=== PATIENT | female | born 1930 | race Caucasian/White ===

== ENCOUNTER 2018-01-05 22:35 | Inpatient (IN) ==
[2018-01-06] MEDS ORDERED: Naloxone 0.4 MG/ML INJ IVP PRN (01:33)
[2018-01-06] MEDS ORDERED: Furosemide 40 MG/4 ML VIAL IVP ONE (01:36)
[2018-01-06] MEDS ORDERED: Ringers Solution, Lactated 1,000 ML IVC SCH (01:45)
--- NOTE | 2018-01-06 01:45 | Internal Med History&Physical ---
Date of Encounter: 01/06/18 Time of Encounter: 01:37 Internal Medicine - H&P: HPI Chief complaint: Vomiting, dyspnea Admitted From: Emergency Dept Plans for Post Hospital Care: Home History of present illness: Ms. Bryan is a 87 year old female with h/o- atrial fibrillation and recent cardioversion, was transferred from [facility], due to LAURA. Patient is unable to provide any history due to dementia, which is obtained from review of previous records. Per family, patient has 2-week h/o- shortness of breath and exertional dyspnea, associated with leg swelling and cough. SHe underwent cardioversion for atrial fibrillation 4 days ago, and is noted to be on anticoagulation with Eliquis. She also had nausea and vomiting for the last 2 days, unable to keep any food or medications down. She currently denies all these symptoms. Past Med Surg Social Fam HX - Past Medical History Source: old records reviewed, obtained from family Medical history: atrial fibrillation, CHF, hypertension - Past Surgical History Surgical History: other (unable to be obtained due to patient's mental status) - Social History Smoking Status: Never smoker Smokeless Tobacco Status: No Alcohol use: none Drug use: none Occupational status: retired Current living situation: Home, With Family Activity Level: Uses cane/walker Recent Out of Country Travel Within the Last 8 Weeks: No Exposure or Possible Exposure to Illness During Travel: No - Family History Father Living Status: Cause of : [place] Hx Family Cardiac Disorders: ([place]) Internal Medicine - H&P: Meds 3 Allergy/AdvReac Type Severity Reaction Status Date / Time No Known Allergies Allergy Verified 01/06/18 02:14 All Systems PM: A 10-system review of systems was performed and is negative for pertinent findings except as documented above in the HPI. - Constitutional Constitutional: lethargy, weakness, no chills, no fever(s), no night sweats - EENT Eyes: no change in vision, no discharge, no pain, no photophobia Ears: no ear discharge, no ear pain, no tinnitus Nose, mouth and throat: no dysphagia, no nasal discharge, no neck pain, no sore throat - Cardiovascular Cardiovascular ROS IM: dyspnea, dyspnea on exertion, edema - Respiratory Respiratory: cough, dyspnea on exertion - Gastrointestinal Gastrointestinal: nausea, vomiting - Genitourinary Genitourinary: no change in urinary stream, no dysuria, no flank pain, no hematuria - Musculoskeletal Musculoskeletal ROS IM: muscle weakness, no numbness, no tingling - Integumentary Integumentary IM: no rash, no unusual bruising - Neurological Neurological ROS: no confusion, no convulsions, no focal weakness, no numbness, no tingling, no tremor(s) - Hematologic/Lymphatic Hematologic/Lymphatic: no easy bruising - Constitutional Vitals: Temp Pulse Resp BP Pulse Ox 98.1 F 54 18 143/94 99 01/06/18 00:38 01/06/18 00:38 01/06/18 00:38 01/06/18 00:38 01/06/18 00:38 General appearance: Present: A&O X 1. Absent: answers questions appropriately - Respiratory Respiratory exam: Present: CTAB (coarse breath sounds; upper airway wheezing). Absent: accessory muscle use, rales, rhonchi, wheezes - Cardiovascular Cardiovascular exam: Present: bradycardia, RRR, +S1, +S2. Absent: diastolic murmur, gallop, rubs, systolic murmur - GI/Abdominal GI/Abdominal exam: Present: normal bowel sounds, soft, no peritoneal signs. Absent: distended, tenderness - Extremities Exam Extremities exam: Present: full ROM, pedal edema (1+ pitting pedal edema), warm , radial pulses palpable and symmetrical. Absent: calf tenderness, cyanotic - Neurological Exam Neurological exam: Present: CN II-XII intact, no focal deficits. Absent: pronater drift, facial droop, speech deficit - Skin Skin exam: Present: dry, intact Internal Med - H&P Results - Labs CBC & Chem 7: 01/06/18 01:51 01/06/18 01:51 - EKG Data -: EKG Interpreted by Myself EKG shows normal: sinus rhythm Rate: bradycardia - Assessment and plan (1) Acute kidney injury Current Visit: Yes Status: Acute Assessment and plan: unclear baseline serum creatinine; serum creatinine and BUN in the ER- 4.16, 63. K- 5.1. Clinically volume overloaded, along with nausea/emesis. She is noted to be on Lasix and Spironolactone at home. Will give a dose of 40mg IV Lasix and continue gentle IV fluid hydration. Monitor urine output closely. Check renal U/ S, urine PCR, uric acid levels. Monitor BMP closely. Consult Nephrology if creatinine is not improving/worsening. (2) CHF (congestive heart failure) Current Visit: Yes Status: Chronic Assessment and plan: check TTE; spot dosing of IV Lasix. Hold beta homero due to bradycardia. Continue Telemetry; Qualifiers: Heart failure type: unspecified Heart failure chronicity: chronic Qualified Code(s): I50.9 - Heart failure, unspecified (3) Essential hypertension Current Visit: Yes Status: Chronic Assessment and plan: BP fairly controlled; hold beta homero; (4) Atrial fibrillation Current Visit: Yes Status: Chronic Assessment and plan: s/p DCCV 4 days ago, currently in sinus rhythm; continue Telemetry, hold Metoprolol; continue anticoagulation with Eliquis. Qualifiers: Atrial fibrillation type: paroxysmal Qualified Code(s): I48.0 - Paroxysmal atrial fibrillation - Time Spent With Patient Total time spent is greater than 50% in coordination of care (as documented) at patient's floor/unit and/or counseling patient:
[2018-01-06 02:04] LABS: Basophils % 0.2 %; Eosinophils # 0.1 K/mcL (0.0-0.6); Eosinophils % 2.3 %; Hematocrit 33.6 % (35.3-44.9); Hemoglobin 10.6 g/dL (11.5-15.4); Immature Granulocytes % 0.3 % (0-4); Lymphocytes # 0.5 K/mcL (0.6-4.6); Lymphocytes % 8.5 %; Mean Corpuscular HGB Conc 31.5 g/dL (31.6-35.5); Mean Corpuscular Hemoglobin 26.4 pg (28.0-33.3); Mean Corpuscular Volume 83.6 fL (83.0-100.0); Mean Platelet Volume 10.8 fL (9.4-12.4); Monocytes # 0.6 K/mcL (0.0-1.3); Monocytes % 9.7 %; Neutrophils # 4.9 K/mcL (1.6-8.9); Platelet Count 126 K/mcL (140-400); Red Blood Count 4.02 M/mcL (3.82-4.97); Red Cell Distribution Width 16.8 % (11.5-14.5)
[2018-01-06 02:22] LABS: Calcium 8.5 mg/dL (8.6-10.3); Magnesium 2.4 mg/dL (1.6-2.6); Potassium 4.6 mEq/L (3.5-5.1)
[2018-01-06 03:47] LABS: Bilirubin,Urine Negative (Negative); Blood,Urine Negative (Negative); Clarity,Urine Cloudy (Clear); Color,Urine Yellow (Yellow); Glucose,Urine (UA) Normal (Normal); Ketones,Urine Negative (Negative); Leukocyte Esterase,Urine Negative (Negative); Nitrite,Urine Negative (Negative); Protein,Urine 100 mg/dL (Neg-Trace); Specific Gravity,Urine 1.013 (1.010-1.025); Urobilinogen,Urine Normal (Normal)
[2018-01-06 03:49] LABS: Bacteria,Urine None Seen per hpf (None-Few); Hyaline Casts,Urine Few per lpf (None-Few); Squamous Epithelial Cell,Urine Many per lpf (None-Few)
[2018-01-06 04:05] LABS: RBC,Urine 0-3 per hpf (0-3)
[2018-01-06 04:11] LABS: Protein/Creatinine Ratio,Urine 0.83 mg/mg (0.00-0.20); Sodium, Urine 43.9 mEq/L
[2018-01-06] MEDS: Apixaban 5 MG TABLET PO SCH ×2 (07:51→19:55)
[2018-01-06 08:47] LABS: Calcium 8.5 mg/dL (8.6-10.3); Potassium 4.5 mEq/L (3.5-5.1)
[2018-01-06] MEDS ORDERED: Ondansetron 4 MG/2 ML VIAL IVP PRN (10:24)
[2018-01-06] MEDS ORDERED: Acetaminophen 325 MG TABLET PO PRN (10:24)
[2018-01-06] MEDS ORDERED: traMADol 50 MG TABLET PO PRN (10:24)
[2018-01-06] MEDS ORDERED: *HR* Amiodarone 200 MG TABLET PO SCH (10:30)
[2018-01-06] MEDS: 0.9 % Sodium Chloride 1,000 ML IVC SCH ×2 (11:18→19:55)
--- NOTE | 2018-01-06 14:34 | Nephrology Consult Note ---
Date of Encounter: 01/06/18 Time of Encounter: 14:36 Assessment and Plan (1) Acute kidney injury Current Visit: Yes Status: Acute Scr 3.92 GFR 11. Urine output 400 at this time. Primary team started LAURA workup. Urine NA 43.9 Urine Total Protein 82 PCR: 0.83 UA (-) Renal UTS (-) Will continue to trend Scr to see if NS infusion helps. Renal labs trending in right direction. Will evaluate in am. (2) Atrial fibrillation Current Visit: Yes Status: Chronic Per primary team. Qualifiers: Atrial fibrillation type: paroxysmal Qualified Code(s): I48.0 - Paroxysmal atrial fibrillation (3) CHF (congestive heart failure) Current Visit: Yes Status: Chronic EF 60%, per primary team. Qualifiers: Heart failure type: diastolic Heart failure chronicity: chronic Qualified Code(s): I50.32 - Chronic diastolic (congestive) heart failure History of Present Illness - Reason for Consult Consult date: 01/06/18 Acute Kidney Injury - History of Present Illness Ms. Bryan is a pleasant 87 year old female. Was transferred from [facility] with an LAURA. Does not see a provider from this hospital, unable to get old labs. Denies seeing a Interlacer in the past. Poor historian due to dementia. Family at bedside limited with information as well. PMH: Afib with recent cardioversion. Per primary note patient has been having n/v for the last 2 days. No emesis today. Does take Spironolactone and Furosemide at home, which have been held. Unsure if use of NSAIDS at home. No recent imaging with IVP dye. At this time, LAURA likely to dehydration. Past Med Surg Social Fam HX - Past Medical History Medical history: atrial fibrillation, CHF, hypertension - Past Surgical History Surgical History: other (unable to be obtained due to patient's mental status) - Social History Smoking Status: Never smoker Smokeless Tobacco Status: No Alcohol use: none Drug use: none - Family History Father Living Status: Cause of : [place] Hx Family Cardiac Disorders: ([place]) Medications and Allergies Amiodarone [Cordarone] 400 mg PO BID 01/06/18 [History] Apixaban [Eliquis] 5 mg PO BID 01/06/18 [History] Atenolol 100 mg PO DAILY 01/06/18 [History] Furosemide [Lasix] 40 mg PO BID 01/06/18 [History] Losartan [Cozaar] 50 mg PO DAILY 01/06/18 [History] Spironolactone [Aldactone] 25 mg PO DAILY 01/06/18 [History] 3 Allergy/AdvReac Type Severity Reaction Status Date / Time No Known Allergies Allergy Verified 01/06/18 02:14 Review of Systems ROS unobtainable: due to mental status (Pt does have demential, did seem to answer appropriately. ) Constitutional: no chills, no fatigue, no fever(s) Nose, mouth and throat: no dry mouth Cardiovascular: edema, no chest pain Respiratory: cough (as per records.) Gastrointestinal: as per HPI Exam - Vital Signs Vital signs: Initial Vital Signs Temp Pulse Resp BP Pulse Ox 98.1 F 54 18 143/94 99 01/06/18 00:38 01/06/18 00:38 01/06/18 00:38 01/06/18 00:38 01/06/18 00:38 Vital Signs - Last 8 Hours Temp Pulse Resp BP Pulse Ox 01/06/18 11:01 97.5 F L 53 14 119/51 93 01/06/18 07:39 97 01/06/18 06:39 98.2 F 51 18 127/47 97 Intake and Output 01/05/18 01/06/18 01/06/18 23:59 07:59 15:59 Output Total 400 / 400 Balance -400 / -400 Output: Urine 400 / 400 Other: Stool Size Moderate Stool Consistency soft Stool Color Brown # Voids 1 Weight 84.2 kg Patient Weight 01/06/18 23:59 Weight 84.2 kg - General Appearance General appearance: well-developed, well-nourished EENT: ATNC, hearing intact, vision intact Neck: supple Respiratory: clear Cardiology: edema (+1 pitting edema noted bilaterally), normal S1, normal S2 Gastrointestinal: normoactive bowel sounds, no tenderness, no guarding Integumentary: no rash, warm and dry Neurologic: alert and oriented x3 (A/O x 3 at this time, per records there is a history of dementia. ) Psychiatric: mood/affect appropriate, cooperative Results - Lab Results 01/06/18 01:51 01/06/18 07:32 Most recent lab results Calcium 8.5 mg/dL (8.6-10.3) L 01/06/18 07:32 Magnesium 2.4 mg/dL (1.6-2.6) 01/06/18 01:51 Urine Creatinine 99 mg/dL 01/06/18 02:25 Urine Sodium 43.9 mEq/L 01/06/18 02:25 Urine Total Protein 82 mg/dL (1-14) H 01/06/18 02:25 Consult Discharge Plan - Plan Referrals: NONE,PCP [Primary Care Provider] -
--- NOTE | 2018-01-06 15:35 | Internal Med Progress Note ---
Date of Encounter: 01/06/18 Time of Encounter: 15:00 - Assessment and plan (1) Acute kidney injury Current Visit: Yes Status: Acute Assessment and plan: Multi factorial - Intra vascular volume depletion / dehydration / and medications Losartan, Lasix and Aldactone Held all nephro toxic meds cont gentle IV hydration unclear baseline serum creatinine Will obtain medical records from [facility] Nephro consulted Cr started trending down slowly (2) CHF (congestive heart failure) Current Visit: Yes Status: Chronic Assessment and plan: reviewed 2 D Echo showed preserved LVEF @ 60 %, Moderate diastolic dysfunction Held diuretics Held beta homero due to bradycardia. Continue Telemetry; Qualifiers: Heart failure type: diastolic Heart failure chronicity: chronic Qualified Code(s): I50.32 - Chronic diastolic (congestive) heart failure (3) Essential hypertension Current Visit: Yes Status: Chronic Assessment and plan: BP fairly controlled; held beta homero (4) Atrial fibrillation Current Visit: Yes Status: Chronic Assessment and plan: s/p DCCV 5 days ago, currently in sinus rhythm; continue Telemetry, held Metoprolol and Amiodarone continue anticoagulation with Eliquis. Qualifiers: Atrial fibrillation type: paroxysmal Qualified Code(s): I48.0 - Paroxysmal atrial fibrillation - Time Spent With Patient Total time spent is greater than 50% in coordination of care (as documented) at patient's floor/unit and/or counseling patient: - Subjective Interval history: Ms. Bryan is a 87 year old female with h/o- atrial fibrillation and recent cardioversion, was transferred from [facility], due to LAURA. She underwent cardioversion for atrial fibrillation 4 days ago, and is noted to be on anticoagulation with Eliquis. She also had nausea and vomiting for the last 2 days, unable to keep any food or medications down. She denied any CP / SOB. She is alert, awake and O x 3. Does c/o mild swelling in the legs. Over all feels better today. - Constitutional Vitals: Temp Pulse Resp BP Pulse Ox 97.5 F L 53 14 119/51 93 01/06/18 11:01 01/06/18 11:01 01/06/18 11:01 01/06/18 11:01 01/06/18 11:01 General appearance: Present: A&O X 3. Absent: answers questions appropriately - Head Head exam: Present: atraumatic, normal inspection - Neck Neck exam general surgery: Present: supple - Respiratory Respiratory exam: Present: decreased breath sounds. Absent: rales, respiratory distress, rhonchi, wheezes - Cardiovascular Cardiovascular exam: Present: RRR, +S1, +S2. Absent: tachycardia - GI/Abdominal GI/Abdominal exam: Present: normal bowel sounds, soft. Absent: rebound, rigid, tenderness - Extremities Exam Extremities exam: Present: pedal edema (trace). Absent: calf tenderness, tenderness - Back Exam Back exam: Absent: CVA tenderness (L), CVA tenderness (R) - Neurological Exam Neurological exam: Present: alert, oriented X3 - Psychiatric Psychiatric exam: Present: normal affect, normal mood Internal Medicine: Result - Labs CBC & Chem 7: 01/06/18 01:51 01/06/18 07:32 Labs: Short CBC 01/06/18 Range/Units 01:51 WBC 6.2 (4.3-11.1) K/mcL Hgb 10.6 L (11.5-15.4) g/dL Hct 33.6 L (35.3-44.9) % Plt Count 126 L (140-400) K/mcL Neutrophils # 4.9 (1.6-8.9) K/mcL BMP 01/06/18 01/06/18 01/06/18 01:51 07:32 07:32 Sodium 133 L Cancelled 133 L Potassium 4.6 Cancelled 4.5 Chloride 97 L Cancelled 99 Carbon Dioxide 27 Cancelled 23 BUN 66 H Cancelled 67 H Creatinine 4.12 H Cancelled 3.92 H Glucose 92 Cancelled 85 Calcium 8.5 L Cancelled 8.5 L Cardiac Enzymes 01/06/18 01/06/18 01/06/18 Range/Units 01:51 07:32 13:59 Troponin I < 0.03 < 0.03 < 0.03 (< 0.04) ng/mL Urine 01/06/18 Range/Units 02:25 Urine Color Yellow (Yellow) Urine Clarity Cloudy A (Clear) Urine pH 6.0 (5.0-8.0) pH Units Ur Specific [place] 1.013 (1.010-1.025) Urine Protein 100 H (Neg-Trace) mg/dL Urine Glucose (UA) Normal (Normal) mg/dL - Impressions Impressions Echocardiogram 01/06/18 02:51 Impressions: LVEF 60%. Mild concentric left ventricular hypertrophy. Moderate left ventricular diastolic dysfunction. IV septum is flattened during diastole suggesting RV volume overload. RV size is mildly enlarged with mild reduction in function. Severe bi-atrial enlargement. Moderate mitral regurgitation. Mild aortic regurgitation. Moderate-severe tricuspid regurgitation. Mild pulmonic regurgitation. 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 No evidence of PFO with agitated saline contrast. Left Ventricular Wall Motion: Rest Echo Findings All wall segments showed normal motion. Findings: Study Quality * Technically adequate exam. ECG Findings * Sinus bradycardia. Left Ventricle * LVEF 60%. * Mild concentric left ventricular hypertrophy. * Normal LV chamber size. * IV septum is flattened during diastole. * Moderate left ventricular diastolic dysfunction. Right Ventricle * RV size is mildly enlarged with mild reduction in function. Left Atrium * Severely dilated left atrium. Right Atrium * Severely dilated right atrium. Mitral Valve * Mild mitral annular calcification * No mitral stenosis. * Mildly thickened mitral valve leaflets. * Moderate mitral regurgitation. Aortic Valve * Trileaflet aortic valve. * Mildly calcified/thickened aortic valve leaflets. * No aortic stenosis. * Mild aortic regurgitation. Tricuspid Valve * Tricuspid valve not well visualized. * Moderate-severe tricuspid regurgitation. Pulmonic Valve * Pulmonic valve is not well visualized. * No pulmonic stenosis. * Mild pulmonic regurgitation. Pulmonary Artery * Pulmonary artery not well visualized. Aorta * Normally sized aortic root. Pericardium * There is no pericardial effusion present. Interatrial Septum * Aneurysmal interatrial septal. * No evidence of PFO with agitated saline contrast. IVC * The IVC is not dilated. * < 50% respiratory change. Retroperitoneum Ultrasound 01/06/18 09:00 IMPRESSION: Trace pelvic ascites. No hydronephrosis. D/ / Sanjay Cueva MD / Sanjay Cueva MD Interpreting Provider: Sanjay Cueva MD Consult Discharge Plan - Plan Referrals: NONE,PCP [Primary Care Provider] -
[2018-01-07 06:26] LABS: Basophils % 0.2 %; Eosinophils # 0.2 K/mcL (0.0-0.6); Eosinophils % 2.9 %; Hematocrit 32.1 % (35.3-44.9); Hemoglobin 10.1 g/dL (11.5-15.4); Immature Granulocytes % 0.2 % (0-4); Lymphocytes # 0.5 K/mcL (0.6-4.6); Lymphocytes % 9.8 %; Mean Corpuscular HGB Conc 31.5 g/dL (31.6-35.5); Mean Corpuscular Hemoglobin 26.3 pg (28.0-33.3); Mean Corpuscular Volume 83.6 fL (83.0-100.0); Monocytes # 0.5 K/mcL (0.0-1.3); Monocytes % 10.4 %; Neutrophils # 3.9 K/mcL (1.6-8.9); Platelet Count 122 K/mcL (140-400); Red Blood Count 3.84 M/mcL (3.82-4.97); Segmented Neutrophils % 76.5 %
[2018-01-07 06:53] LABS: Calcium 8.3 mg/dL (8.6-10.3); Magnesium 2.4 mg/dL (1.6-2.6); Potassium 4.1 mEq/L (3.5-5.1)
[2018-01-07] MEDS: 0.9 % Sodium Chloride 1,000 ML IVC SCH ×2 (08:08→20:43)
[2018-01-07] MEDS: Apixaban 5 MG TABLET PO SCH ×2 (08:09→20:42)
--- NOTE | 2018-01-07 09:56 | Nephrology Progress Note ---
Date of Encounter: 01/07/18 Time of Encounter: 09:54 - Assessment and Plan (1) Acute kidney injury Current Visit: Yes Status: Acute Continue hydration. Scr and GFR improving. Continue to avoid nephrotoxins and renal dose all medications. Unsure if CKD in past, records requested from other facilities. (2) Atrial fibrillation Current Visit: Yes Status: Chronic Rate controlled, monitor for bradycardia. Qualifiers: Atrial fibrillation type: paroxysmal Qualified Code(s): I48.0 - Paroxysmal atrial fibrillation (3) CHF (congestive heart failure) Current Visit: Yes Status: Chronic Per primary team. Qualifiers: Heart failure type: diastolic Heart failure chronicity: chronic Qualified Code(s): I50.32 - Chronic diastolic (congestive) heart failure Subjective Principal diagnosis: vomiting/dyspnea Interval history: Pt seen and examined, sitting up in bed. Objective - Vital Signs Vital signs: Vital Signs Temp Pulse Resp BP Pulse Ox 01/07/18 06:59 98.0 F 51 18 148/53 96 01/07/18 03:45 97.4 F L 53 18 146/75 95 01/07/18 00:09 98.6 F 54 18 146/54 97 01/06/18 18:35 98.0 F 55 16 145/74 98 01/06/18 15:49 97.7 F 52 18 137/74 99 01/06/18 11:01 97.5 F L 53 14 119/51 93 Intake and Output 01/06/18 01/07/18 01/07/18 23:59 07:59 15:59 Intake Total 1000 / 1000 1000 / 1000 Output Total 175 / 175 350 / 350 Balance 825 / 825 650 / 650 Intake: IV Fluids 1000 / 1000 1000 / 1000 0.9 % Sodium Chloride 1,000 ML 1000 / 1000 1000 / 1000 @ 100 mls/hr IVC .Q10H TWIN Rx#: [id number] Oral 0 / 0 Output: Urine 175 / 175 350 / 350 - General Appearance General appearance: Present: well-developed, well-nourished, frail EENT: Present: ATNC, mucous membranes moist, hearing intact, vision intact Neck: Present: supple Respiratory: Present: clear Cardiology: Present: edema (+2 pitting noted bilaterally. ), normal S1, normal S2 Gastrointestinal: Present: normoactive bowel sounds, no tenderness, no guarding Integumentary: Present: no rash, warm and dry Neurologic: Present: confused Psychiatric: Present: mood/affect appropriate, cooperative - Lab 01/07/18 04:40 01/07/18 04:40 Most recent lab results Calcium 8.3 mg/dL (8.6-10.3) L 01/07/18 04:40 Magnesium 2.4 mg/dL (1.6-2.6) 01/07/18 04:40 Urine Creatinine 99 mg/dL 01/06/18 02:25 Urine Sodium 43.9 mEq/L 01/06/18 02:25 Urine Total Protein 82 mg/dL (1-14) H 01/06/18 02:25 Consult Discharge Plan - Plan Referrals: NONE,PCP [Primary Care Provider] -
[2018-01-07 15:29] LABS: Uric Acid 10.7 mg/dL (2.3-7.6)
--- NOTE | 2018-01-07 16:38 | Internal Med Progress Note ---
Date of Encounter: 01/07/18 Time of Encounter: 11:45 - Assessment and plan (1) Acute kidney injury Current Visit: Yes Status: Acute Assessment and plan: Multi factorial - Intra vascular volume depletion / dehydration / and medications Losartan, Lasix and Aldactone Held all nephro toxic meds cont gentle IV hydration Reviewed her medical records from [facility] her Cr 1.08 on 12/02/17 So it seems to be purely LAURA now Nephro is on board Cr started trending down slowly cont monitoring (2) CHF (congestive heart failure) Current Visit: Yes Status: Chronic Assessment and plan: reviewed 2 D Echo showed preserved LVEF @ 60 %, Moderate diastolic dysfunction Held diuretics Held beta homero due to bradycardia. Continue Telemetry; Qualifiers: Heart failure type: diastolic Heart failure chronicity: chronic Qualified Code(s): I50.32 - Chronic diastolic (congestive) heart failure (3) Essential hypertension Current Visit: Yes Status: Chronic Assessment and plan: held beta homero due to bradycardia so far stable BP in 130-140's cont close monitoring (4) Atrial fibrillation Current Visit: Yes Status: Chronic Assessment and plan: s/p DCCV 7 days ago, currently in sinus rhythm; continue Telemetry, held Metoprolol and Amiodarone continue anticoagulation with Eliquis. Qualifiers: Atrial fibrillation type: paroxysmal Qualified Code(s): I48.0 - Paroxysmal atrial fibrillation - Time Spent With Patient Total time spent is greater than 50% in coordination of care (as documented) at patient's floor/unit and/or counseling patient: - Subjective Interval history: Ms. Bryan is a 87 year old female with h/o- atrial fibrillation and recent cardioversion, was transferred from [facility], due to LAURA. She underwent cardioversion for atrial fibrillation 4 days ago, and is noted to be on anticoagulation with Eliquis. She also had nausea and vomiting for the last 2 days, unable to keep any food or medications down. She denied any CP / SOB. She is alert, awake and O x 3. Does c/o mild swelling in the legs. Over all feels better today. No events over night - Constitutional Vitals: Temp Pulse Resp BP Pulse Ox 97.7 F 54 18 146/69 96 01/07/18 10:44 01/07/18 10:44 01/07/18 10:44 01/07/18 10:44 01/07/18 10:44 General appearance: Present: A&O X 3, no acute distress. Absent: answers questions appropriately - Head Head exam: Present: atraumatic, normal inspection - Neck Neck exam general surgery: Present: supple - Respiratory Respiratory exam: Present: decreased breath sounds. Absent: rales, respiratory distress, rhonchi, wheezes - Cardiovascular Cardiovascular exam: Present: bradycardia, +S1, +S2, systolic murmur. Absent: tachycardia - GI/Abdominal GI/Abdominal exam: Present: normal bowel sounds, soft. Absent: tenderness - Extremities Exam Extremities exam: Present: pedal edema. Absent: calf tenderness, tenderness - Back Exam Back exam: Present: CVA tenderness (L), CVA tenderness (R) - Psychiatric Psychiatric exam: Present: normal affect, normal mood Internal Medicine: Result - Labs CBC & Chem 7: 01/07/18 04:40 01/07/18 04:40 Labs: Short CBC 01/07/18 Range/Units 04:40 WBC 5.1 (4.3-11.1) K/mcL Hgb 10.1 L (11.5-15.4) g/dL Hct 32.1 L (35.3-44.9) % Plt Count 122 L (140-400) K/mcL Neutrophils # 3.9 (1.6-8.9) K/mcL BMP 01/07/18 04:40 Sodium 136 Potassium 4.1 Chloride 103 Carbon Dioxide 24 BUN 66 H Creatinine 3.37 H Glucose 86 Calcium 8.3 L Consult Discharge Plan - Plan Referrals: NONE,PCP [Primary Care Provider] -
[2018-01-08] MEDS: 0.9 % Sodium Chloride 1,000 ML IVC SCH (06:08)
[2018-01-08 07:48] LABS: Calcium 8.5 mg/dL (8.6-10.3); Magnesium 2.5 mg/dL (1.6-2.6)
[2018-01-08] MEDS: Apixaban 5 MG TABLET PO SCH ×2 (10:06→21:36)
--- NOTE | 2018-01-08 10:26 | Nephrology Progress Note ---
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 Cont to follow a renal protective/supportive strategy. Will follow with you (2) CHF (congestive heart failure) Status: Chronic As per primary. The pt will need a diuretic to help manage her volume status at some point . Qualifiers: Heart failure type: diastolic Heart failure chronicity: chronic Qualified Code(s): I50.32 - Chronic diastolic (congestive) heart failure (3) Essential hypertension Status: Chronic Chronic. Reviewed her home and inpt lists for evaluation and mgt to consider the safest option to help facilitate renal recovery while. Subjective Principal diagnosis: vomiting/dyspnea Interval history: Pt was s/e earlier in the day. She did not affirm Uremic complaints such as N/V/ D, confusion. She has chronic edema, she said. Objective - Vital Signs Vital signs: Vital Signs Temp Pulse Resp BP Pulse Ox 01/08/18 06:46 97.6 F 52 20 137/66 95 01/08/18 05:03 98.1 F 01/08/18 04:20 97.7 F 50 18 156/63 98 01/07/18 23:40 97.8 F 56 18 161/72 100 01/07/18 18:37 97.6 F 55 16 161/70 95 01/07/18 10:44 97.7 F 54 18 146/69 96 Intake and Output 01/07/18 01/08/18 01/08/18 23:59 07:59 15:59 Intake Total 1000 / 1000 1000 / 1000 Output Total 400 / 400 500 / 500 Balance 600 / 600 500 / 500 Intake: IV Fluids 1000 / 1000 1000 / 1000 0.9 % Sodium Chloride 1,000 ML 1000 / 1000 1000 / 1000 @ 100 mls/hr IVC .Q10H TWIN Rx#: [id number] Oral 0 / 0 Output: Urine 400 / 400 500 / 500 Other: Stool Size Small Stool Consistency formed Stool Color Brown # Bowel Movements 1 - General Appearance General appearance: Present: well-developed, well-nourished, appears started age EENT: Present: ATNC, PERRL, mucous membranes moist Neck: Present: supple Respiratory: Present: clear Cardiology: Present: edema (1+ pretibial pitting edema bilaterally), normal S1, normal S2 Gastrointestinal: Present: normoactive bowel sounds, no tenderness, no guarding Integumentary: Present: warm and dry Neurologic: Present: no focal deficit, no asterixis Musculoskeletal: Present: no cyanosis, no clubbing Psychiatric: Present: mood/affect appropriate, cooperative - Lab 01/07/18 04:40 01/11/18 05:55 Most recent lab results Calcium 8.5 mg/dL (8.6-10.3) L 01/08/18 06:37 Magnesium 2.5 mg/dL (1.6-2.6) 01/08/18 06:37 Urine Creatinine 99 mg/dL 01/06/18 02:25 Urine Sodium 43.9 mEq/L 01/06/18 02:25 Urine Total Protein 82 mg/dL (1-14) H 01/06/18 02:25 Consult Discharge Plan - Plan Referrals: Fabian Perez MD [Partnered Physician] - 02/11/18 3:40 pm (Please follow up as schedule...) NONE,PCP [Primary Care Provider] -
--- NOTE | 2018-01-08 16:00 | Internal Med Progress Note ---
Date of Encounter: 01/08/18 Time of Encounter: 11:20 - Assessment and plan (1) Acute kidney injury Current Visit: Yes Status: Acute Assessment and plan: Multi factorial - Intra vascular volume depletion / dehydration / and medications Losartan, Lasix and Aldactone Held all nephro toxic meds Reviewed her medical records from [facility] her Cr 1.08 on 12/02/17 So it seems to be purely LAURA now Nephro is on board Cr started trending down slowly - today @ 2.37 cont monitoring d/c IVF Cont holding diuretics for now (2) CHF (congestive heart failure) Current Visit: Yes Status: Chronic Assessment and plan: reviewed 2 D Echo showed preserved LVEF @ 60 %, Moderate diastolic dysfunction Held diuretics Held beta homero due to bradycardia. Continue Telemetry; Qualifiers: Heart failure type: diastolic Heart failure chronicity: chronic Qualified Code(s): I50.32 - Chronic diastolic (congestive) heart failure (3) Essential hypertension Current Visit: Yes Status: Chronic Assessment and plan: held beta homero due to bradycardia so far stable BP in 130-140's cont close monitoring (4) Atrial fibrillation Current Visit: Yes Status: Chronic Assessment and plan: s/p DCCV 7 days ago, currently in sinus rhythm; continue Telemetry, held Metoprolol and Amiodarone continue anticoagulation with Eliquis. Qualifiers: Atrial fibrillation type: paroxysmal Qualified Code(s): I48.0 - Paroxysmal atrial fibrillation (5) Physical deconditioning Current Visit: Yes Status: Acute Assessment and plan: PT / OT eval May need ECF placement SW working on it - Time Spent With Patient Total time spent is greater than 50% in coordination of care (as documented) at patient's floor/unit and/or counseling patient: - Subjective Interval history: Ms. Bryan is a 87 year old female with h/o- atrial fibrillation and recent cardioversion, was transferred from [facility], due to LAURA. She underwent cardioversion for atrial fibrillation 4 days ago, and is noted to be on anticoagulation with Eliquis. She also had nausea and vomiting for the last 2 days, unable to keep any food or medications down. She denied any CP / SOB. She is alert, awake and O x 3. Does c/o mild swelling in the legs. Over all feels better today. No events over night - Constitutional Vitals: Temp Pulse Resp BP Pulse Ox 97.6 F 55 17 153/77 96 01/08/18 15:31 01/08/18 15:31 01/08/18 15:31 01/08/18 15:31 01/08/18 15:31 General appearance: Present: A&O X 3, no acute distress. Absent: answers questions appropriately - Head Head exam: Present: atraumatic, normal inspection - Neck Neck exam general surgery: Present: supple - Respiratory Respiratory exam: Present: decreased breath sounds. Absent: rales, respiratory distress, rhonchi, wheezes - Cardiovascular Cardiovascular exam: Present: RRR, +S1, +S2. Absent: tachycardia - GI/Abdominal GI/Abdominal exam: Present: normal bowel sounds, soft. Absent: rebound, rigid, tenderness - Extremities Exam Extremities exam: Present: pedal edema. Absent: calf tenderness, tenderness (1- 2+) - Back Exam Back exam: Absent: CVA tenderness (L), CVA tenderness (R) - Neurological Exam Neurological exam: Present: alert, oriented X3 - Psychiatric Psychiatric exam: Present: normal affect, normal mood Internal Medicine: Result - Labs CBC & Chem 7: 01/07/18 04:40 01/08/18 06:37 Labs: BMP 01/08/18 06:37 Sodium 138 Potassium 4.0 Chloride 106 Carbon Dioxide 24 BUN 56 H Creatinine 2.37 H Glucose 100 Calcium 8.5 L Consult Discharge Plan - Plan Referrals: NONE,PCP [Primary Care Provider] -
[2018-01-08] MEDS ORDERED: Furosemide 20 MG/2 ML VIAL IVP ONE (19:10)
[2018-01-09 04:17] LABS: Calcium 8.4 mg/dL (8.6-10.3); Magnesium 2.3 mg/dL (1.6-2.6)
[2018-01-09] MEDS: Apixaban 5 MG TABLET PO SCH ×2 (08:02→20:16)
--- NOTE | 2018-01-09 10:09 | Internal Med Progress Note ---
Date of Encounter: 01/09/18 Time of Encounter: 09:00 - Assessment and plan (1) Acute kidney injury Current Visit: Yes Status: Acute Assessment and plan: Multi factorial - Intra vascular volume depletion / dehydration / and medications Losartan, Lasix and Aldactone Held all nephro toxic meds Reviewed her medical records from [facility] her Cr 1.08 on 12/02/17 So it seems to be purely LAURA now Nephro is on board Cr started trending down slowly - today @ 1.9 cont monitoring resumed PO Lasix today (2) CHF (congestive heart failure) Current Visit: Yes Status: Chronic Assessment and plan: reviewed 2 D Echo showed preserved LVEF @ 60 %, Moderate diastolic dysfunction Resumed PO Lasix today Held beta homero due to bradycardia. Continue Telemetry Qualifiers: Heart failure type: diastolic Heart failure chronicity: chronic Qualified Code(s): I50.32 - Chronic diastolic (congestive) heart failure (3) Essential hypertension Current Visit: Yes Status: Chronic Assessment and plan: held beta homero due to bradycardia so far stable BP in 130-140's cont close monitoring (4) Atrial fibrillation Current Visit: Yes Status: Chronic Assessment and plan: s/p DCCV 7 days ago, currently in sinus rhythm; continue Telemetry, held Metoprolol and Amiodarone continue anticoagulation with Eliquis. Qualifiers: Atrial fibrillation type: paroxysmal Qualified Code(s): I48.0 - Paroxysmal atrial fibrillation (5) Physical deconditioning Current Visit: Yes Status: Acute Assessment and plan: PT / OT eval May need ECF placement SW working on it - Time Spent With Patient Total time spent is greater than 50% in coordination of care (as documented) at patient's floor/unit and/or counseling patient: - Subjective Interval history: Ms. Bryan is a 87 year old female with h/o- atrial fibrillation and recent cardioversion, was transferred from [facility], due to LAURA. She underwent cardioversion for atrial fibrillation 4 days ago, and is noted to be on anticoagulation with Eliquis. She also had nausea and vomiting for the last 2 days, unable to keep any food or medications down. She did c/o SOB last night, so gave her 1 dose IV Lasix. Today denied any CP / SOB. She is alert, awake and O x 3. Does c/o mild swelling in the legs. Over all feels better today. - Constitutional Vitals: Temp Pulse Resp BP Pulse Ox 97.7 F 51 17 135/66 97 01/09/18 07:19 01/09/18 07:19 01/09/18 07:19 01/09/18 07:19 01/09/18 07:19 General appearance: Present: A&O X 3, no acute distress. Absent: answers questions appropriately - Head Head exam: Present: atraumatic, normal inspection - Neck Neck exam general surgery: Present: supple - Respiratory Respiratory exam: Present: decreased breath sounds. Absent: rales, respiratory distress, rhonchi, wheezes - Cardiovascular Cardiovascular exam: Present: RRR, +S1, +S2. Absent: tachycardia - GI/Abdominal GI/Abdominal exam: Present: normal bowel sounds, soft. Absent: rebound, rigid, tenderness - Extremities Exam Extremities exam: Present: pedal edema. Absent: calf tenderness, tenderness - Back Exam Back exam: Absent: CVA tenderness (L), CVA tenderness (R) - Neurological Exam Neurological exam: Present: alert, oriented X3 - Psychiatric Psychiatric exam: Present: normal affect, normal mood Internal Medicine: Result - Labs CBC & Chem 7: 01/07/18 04:40 01/09/18 03:31 Labs: BMP 01/09/18 03:31 Sodium 138 Potassium 4.0 Chloride 106 Carbon Dioxide 25 BUN 46 H Creatinine 1.96 H Glucose 98 Calcium 8.4 L - VTE Documentation of Mechanical Device: Graduated compression elastic hosiery Consult Discharge Plan - Plan Referrals: NONE,PCP [Primary Care Provider] -
--- NOTE | 2018-01-09 11:09 | Nephrology Progress Note ---
Date of Encounter: 01/17/18 Time of Encounter: 09:15 - Assessment and Plan (1) Acute kidney injury Status: Acute Prerenal LAURA and slowly trending better. Will need to balance diuretics with her volume status and renal function. Cont to hold nephrotoxins such as Losartan and Spirono but will at this point should resume a lower dose of lasix. In the coming days at her follow up with her PCP and then nephrology, she will likely need to have her lasix further titrated plus determination of when if any resumption of the ARB and K+sparing diuretic. She was first consulted by Dr. Perez, so I recommend outpt follow up with him in 2-4 weeks. (2) CHF (congestive heart failure) Status: Chronic See above re: diuretics. Qualifiers: Heart failure type: diastolic Heart failure chronicity: chronic Qualified Code(s): I50.32 - Chronic diastolic (congestive) heart failure (3) Essential hypertension Status: Chronic See above Subjective Principal diagnosis: vomiting/dyspnea Interval history: Pt was s/e earlier in the day. She did not affirm Uremic complaints such as N/V/ D, confusion. She has chronic edema, she said. She had no new complaints on Thursday. Objective - Vital Signs Vital signs: Vital Signs Temp Pulse Resp BP Pulse Ox 01/09/18 07:19 97.7 F 51 17 135/66 97 01/09/18 03:21 97.6 F 58 18 165/74 98 01/08/18 23:10 97.6 F 55 18 158/76 99 01/08/18 18:50 97.7 F 57 18 170/65 95 01/08/18 15:31 97.6 F 55 17 153/77 96 01/08/18 11:11 52 18 146/57 97 Intake and Output 01/08/18 01/09/18 01/09/18 23:59 07:59 15:59 Intake Total 0 / 0 Output Total 200 / 200 Balance -200 / -200 0 / 0 Intake: Oral 0 / 0 Output: Urine 200 / 200 Other: Meal Breakfast Percent of Meal Consumed 85% # Voids 1 Weight 85.91 kg Patient Weight 01/09/18 23:59 Weight 85.91 kg - General Appearance Exam: General appearance: Present: well-developed, well-nourished, appears started age EENT: Present: ATNC, PERRL, mucous membranes moist Neck: Present: supple Respiratory: Present: clear Cardiology: Present: edema (1+ pretibial pitting edema bilaterally), normal S1, normal S2 Gastrointestinal: Present: normoactive bowel sounds, no tenderness, no guarding Integumentary: Present: warm and dry Neurologic: Present: no focal deficit, no asterixis Musculoskeletal: Present: no cyanosis, no clubbing Psychiatric: Present: mood/affect appropriate, cooperative - Lab 01/07/18 04:40 01/11/18 05:55 Most recent lab results Calcium 8.4 mg/dL (8.6-10.3) L 01/09/18 03:31 Magnesium 2.3 mg/dL (1.6-2.6) 01/09/18 03:31 Urine Creatinine 99 mg/dL 01/06/18 02:25 Urine Sodium 43.9 mEq/L 01/06/18 02:25 Urine Total Protein 82 mg/dL (1-14) H 01/06/18 02:25 - VTE Documentation of Mechanical Device: Graduated compression elastic hosiery Consult Discharge Plan - Plan Referrals: Fabian Perez MD [Partnered Physician] - 02/11/18 3:40 pm (Please follow up as schedule...) NONE,PCP [Primary Care Provider] -
[2018-01-09] MEDS: Furosemide 40 MG TABLET PO SCH (11:18)
[2018-01-09] MEDS ORDERED: Ipratropium/Albuterol Neb 3 ML IH PRN (13:13)
[2018-01-10 04:50] LABS: Calcium 8.4 mg/dL (8.6-10.3); Magnesium 2.1 mg/dL (1.6-2.6); Potassium 3.7 mEq/L (3.5-5.1)
[2018-01-10] MEDS: Apixaban 5 MG TABLET PO SCH ×2 (08:14→20:19)
[2018-01-10] MEDS: Furosemide 40 MG TABLET PO SCH ×2 (08:14→17:48)
[2018-01-10] MEDS ORDERED: hydrALAZINE 25 MG TABLET PO PRN (10:47)
--- NOTE | 2018-01-10 10:51 | Internal Med Progress Note ---
Date of Encounter: 01/10/18 Time of Encounter: 10:48 - Assessment and plan (1) Acute kidney injury Current Visit: Yes Status: Acute Assessment and plan: Multi factorial - Intra vascular volume depletion / dehydration / and medications Losartan, Lasix and Aldactone Held all nephro toxic meds Reviewed her medical records from [facility] her Cr 1.08 on 12/02/17 So it seems to be purely LAURA now Nephro is on board Cr started trending down slowly - today @ 1.5 cont monitoring resumed PO Lasix (2) CHF (congestive heart failure) Current Visit: Yes Status: Chronic Assessment and plan: reviewed 2 D Echo showed preserved LVEF @ 60 %, Moderate diastolic dysfunction Since pt does c/o more SOB So inc her lasix to 40mg PO BID Her bradycardia improved.. HR in 60's now. so started on low dose Coreg Continue Telemetry Qualifiers: Heart failure type: diastolic Heart failure chronicity: chronic Qualified Code(s): I50.32 - Chronic diastolic (congestive) heart failure (3) Essential hypertension Current Visit: Yes Status: Chronic Assessment and plan: fairly controlled started back on low dose Coreg Inc Lasix to 40 BID Hydralazine PRN (4) Atrial fibrillation Current Visit: Yes Status: Chronic Assessment and plan: Recent s/p DCCV during last hospitalization, currently in sinus rhythm; continue Telemetry, d/c Amiodarone started on low dose Coreg since HR in 60's now continue anticoagulation with Eliquis. Qualifiers: Atrial fibrillation type: paroxysmal Qualified Code(s): I48.0 - Paroxysmal atrial fibrillation (5) Physical deconditioning Current Visit: Yes Status: Acute Assessment and plan: PT / OT eval May need ECF placement SW working on it - Time Spent With Patient Total time spent is greater than 50% in coordination of care (as documented) at patient's floor/unit and/or counseling patient: - Subjective Interval history: Ms. Bryan is a 87 year old female with h/o- atrial fibrillation and recent cardioversion, was transferred from [facility], due to LAURA. She underwent cardioversion for atrial fibrillation 4 days ago, and is noted to be on anticoagulation with Eliquis. She also had nausea and vomiting for the last 2 days, unable to keep any food or medications down. Today denied any CP. Still has some SOB and JOVEL. She is alert, awake and O x 3. Does c/o mild swelling in the legs. Over all feels little better today. - Constitutional Vitals: Temp Pulse Resp BP Pulse Ox 97.5 F L 68 18 160/67 96 01/10/18 07:26 01/10/18 07:26 01/10/18 07:26 01/10/18 07:26 01/10/18 07:26 General appearance: Present: A&O X 3, no acute distress. Absent: answers questions appropriately - Head Head exam: Present: atraumatic, normal inspection - Neck Neck exam general surgery: Present: supple - Respiratory Respiratory exam: Present: decreased breath sounds. Absent: rales, respiratory distress, rhonchi, wheezes - Cardiovascular Cardiovascular exam: Present: RRR, +S1, +S2. Absent: tachycardia - GI/Abdominal GI/Abdominal exam: Present: normal bowel sounds, soft. Absent: rebound, rigid, tenderness - Extremities Exam Extremities exam: Present: pedal edema (2+). Absent: calf tenderness, tenderness - Back Exam Back exam: Absent: CVA tenderness (L), CVA tenderness (R) - Neurological Exam Neurological exam: Present: alert, oriented X3 - Psychiatric Psychiatric exam: Present: normal affect, normal mood Internal Medicine: Result - Labs CBC & Chem 7: 01/07/18 04:40 01/10/18 04:03 Labs: BMP 01/10/18 04:03 Sodium 137 Potassium 3.7 Chloride 104 Carbon Dioxide 28 BUN 33 H Creatinine 1.55 H Glucose 113 H Calcium 8.4 L - VTE Documentation of Mechanical Device: Graduated compression elastic hosiery Consult Discharge Plan - Plan Referrals: NONE,PCP [Primary Care Provider] -
[2018-01-10] MEDS ORDERED: hydrALAZINE 25 MG TABLET PO SCH (16:00)
[2018-01-11 06:32] LABS: Calcium 8.5 mg/dL (8.6-10.3); Potassium 3.3 mEq/L (3.5-5.1)
[2018-01-11] MEDS: Apixaban 5 MG TABLET PO SCH (08:11)
[2018-01-11] MEDS: Furosemide 40 MG TABLET PO SCH (08:12)
--- NOTE | 2018-01-11 08:38 | Discharge Summary ---
- NOTES TO OUTPATIENT PROVIDER Notes to Outpatient Provider: f/u with Cardiology as scheduled before in one week. f/u with Nephrology Dr. Perez in 1-2 weeks. f/u with PCP in one week. Stop taking Amiodarone due to bradycardia, until you see your senior audit manager Date of Encounter: 01/11/18 Time of Encounter: 08:29 - Discharge Diagnosis (1) Acute kidney injury Priority: Primary Status: Acute (2) CHF (congestive heart failure) Priority: Primary Status: Chronic Qualifiers: Heart failure type: diastolic Heart failure chronicity: chronic Qualified Code(s): I50.32 - Chronic diastolic (congestive) heart failure (3) Essential hypertension Priority: Secondary Status: Chronic (4) Atrial fibrillation Priority: Secondary Status: Chronic Qualifiers: Atrial fibrillation type: paroxysmal Qualified Code(s): I48.0 - Paroxysmal atrial fibrillation (5) Physical deconditioning Priority: Secondary Status: Acute Hospital course: Ms. Bryan is a 87 year old female with h/o- atrial fibrillation and recent cardioversion, was transferred from [facility], due to LAURA. She underwent cardioversion for atrial fibrillation 4 days ago, and is noted to be on anticoagulation with Eliquis. She also had nausea and vomiting for the last 2 days, unable to keep any food or medications down. She did develop severe LAURA due to intra vascular volume depletion / dehydration / and medications Losartan , Lasix and Aldactone. Held all nephro toxic meds and started her on gentle IV hydration. Her Cr started trending down from 4.12 to 1.3. We started her on Lasix 2 days and Cr also improved. She did have bradycardia initially so held her Amiodarone and BB ( ?? Atenolol / Metoprolol ). Since y/d her HR in mid 60' s so started her on BB Coreg @ 3.125 BID , pt her stable in low 60's. Pt was evaluated by PT / OT who recommend ECF placement, so will d/c her to ECF today in stable condition. Talked to the family and updated them about hospital course and d/c instructions. - Time Spent with Patient Total time spent providing and/or coordinating discharge services: - Discharge Medications Home Medications: Apixaban [Eliquis] 5 mg PO BID 01/06/18 [History] Furosemide [Lasix] 40 mg PO BID 01/06/18 [History] Carvedilol [Coreg] 3.125 mg PO BIDWM tablet 01/11/18 [Rx] Ipratropium/Albuterol Neb [Duoneb] 3 ml IH Q5ENTTA PRN inhsol 01/11/18 [Rx] hydrALAZINE [HydrALAZINE] 25 mg PO Q8HR tablet 01/11/18 [Rx] Allergies/Adverse Reactions: 3 Allergy/AdvReac Type Severity Reaction Status Date / Time No Known Allergies Allergy Verified 01/06/18 02:14 Date of admission: 01/06/18 01:33 Primary care physician: PCP NONE Consults: 01/06/18 10:22 Consult to Nephrology [CONS] Routine Consulting Provider: Fabian Perez Reason for Consult: LAURA with CKD-3 Call Completed: Yes 01/06/18 18:04 Consult to Wound Care [CONS] Routine Reason for Consult: stage 2 posterior right calf Call Completed: No 01/07/18 19:04 Consult to Occupational Therapy [CONS] Routine Comment: Evaluate, develop and implement POC Reason for Consult: therapy/placement needs Does patient have active BEDREST order?: No Is patient medically & hemodynamically stable?: Yes Consult to Physical Therapy [CONS] Routine Comment: Evaluate, develop and implement POC Reason for Consult: PT eval Does patient have active BEDREST order?: No Is patient medically & hemodynamically stable?: Yes - Constitutional Vitals: Temp Pulse Resp BP Pulse Ox 97.3 F L 60 17 161/63 96 01/11/18 07:51 01/11/18 07:51 01/11/18 07:51 01/11/18 07:51 01/11/18 07:51 General appearance: Present: A&O X 3, no acute distress. Absent: answers questions appropriately - Patient Status Disposition: Transfer SNF Condition: Good Overall status at discharge: patient is back to baseline - Discharge Instructions Follow Up With: NONE,PCP [Primary Care Provider] - - Diet and Activity Activity: increase activity as tolerated Diet: low salt diet - VTE Documentation of Mechanical Device: Graduated compression elastic hosiery
--- NOTE | 2018-01-11 08:39 | Physician Discharge Referral ---
ExtendedCare Referral Info Transfer To: ECF Provider in Charge after Transfer: PCP Institutional Level of Care: Skilled - Diagnosis (1) Acute kidney injury Status: Acute (2) CHF (congestive heart failure) Status: Chronic (3) Essential hypertension Status: Chronic (4) Atrial fibrillation Status: Chronic (5) Physical deconditioning Status: Acute - Transfer Medications Home Medications: Apixaban [Eliquis] 5 mg PO BID 01/06/18 [History] Furosemide [Lasix] 40 mg PO BID 01/06/18 [History] Carvedilol [Coreg] 3.125 mg PO BIDWM tablet 01/11/18 [Rx] Ipratropium/Albuterol Neb [Duoneb] 3 ml IH [id number] PRN inhsol 01/11/18 [Rx] hydrALAZINE [HydrALAZINE] 25 mg PO Q8HR tablet 01/11/18 [Rx] Allergies/Adverse Reactions: 3 Allergy/AdvReac Type Severity Reaction Status Date / Time No Known Allergies Allergy Verified 01/06/18 02:14 - Respiratory Orders Smoking Cessation: Smoking cessation has been advised. For more information, call the [place] Tobacco Quit Line at 1-687-RNBBNOW. CERTIFICATION: I certify that the transfer of the above named patient to an Extended Care Facility is necessary for the continuing treatment of the diagnosis listed. The above information is true and accurate reflection of patient's current condition. Confidential - Redisclosure prohibited without a patient's written consent.
--- NOTE | 2018-01-11 11:32 | Nephrology Progress Note ---
Date of Encounter: 01/11/18 Time of Encounter: 11:30 - Assessment and Plan (1) Acute kidney injury Current Visit: Yes Status: Acute SCR and GFR improving. Discussed with primary team the use of a mild diuretic for diuresis as opposed to home medication regimen. Continue to avoid nephrotoxins and renal dose all medications. Okay for d/c from a renal standpoint. (2) Atrial fibrillation Current Visit: Yes Status: Chronic Rate controlled,HR in low 50's. Qualifiers: Atrial fibrillation type: paroxysmal Qualified Code(s): I48.0 - Paroxysmal atrial fibrillation (3) CHF (congestive heart failure) Current Visit: Yes Status: Chronic Dr. Valdivia discussed with primary physician changing home medication regimen to 40 mg Lasix BID. Qualifiers: Heart failure type: diastolic Heart failure chronicity: chronic Qualified Code(s): I50.32 - Chronic diastolic (congestive) heart failure Subjective Principal diagnosis: vomiting/dyspnea Interval history: Pt seen and examined, sitting up in bed, denies any shortness of breath. Objective - Vital Signs Vital signs: Vital Signs Temp Pulse Resp BP Pulse Ox 01/11/18 07:51 97.3 F L 60 17 161/63 96 01/11/18 04:04 97.9 F 62 18 146/49 96 01/10/18 23:26 98.0 F 67 18 159/71 97 01/10/18 18:44 98.7 F 66 18 171/64 97 01/10/18 15:23 98.8 F 63 18 151/69 100 Intake and Output 01/10/18 01/11/18 01/11/18 23:59 07:59 15:59 Intake Total 240 / 240 Output Total 300 / 300 Balance -300 / -300 240 / 240 Intake: Oral 240 / 240 Output: Urine 300 / 300 Other: Meal Dinner Breakfast Percent of Meal Consumed 60% 100% Stool Size Small Stool Consistency formed Stool Color Brown # Voids 1 1 1 # Bowel Movements 1 Weight 84.822 kg Patient Weight 01/11/18 23:59 Weight 84.822 kg - General Appearance General appearance: Present: obese, chronically ill EENT: Present: ATNC, hearing intact, vision intact Neck: Present: supple Respiratory: Present: clear Cardiology: Present: edema (+1 noted bilaterally. ), irregular rhythm, normal S1 , normal S2 Gastrointestinal: Present: normoactive bowel sounds, no tenderness, no guarding Integumentary: Present: no rash, warm and dry (Alert to name and place.) Psychiatric: Present: mood/affect appropriate, cooperative - Lab 01/07/18 04:40 01/11/18 05:55 Most recent lab results Calcium 8.5 mg/dL (8.6-10.3) L 01/11/18 05:55 Magnesium 1.6 mg/dL (1.6-2.6) 01/11/18 05:55 Urine Creatinine 99 mg/dL 01/06/18 02:25 Urine Sodium 43.9 mEq/L 01/06/18 02:25 Urine Total Protein 82 mg/dL (1-14) H 01/06/18 02:25 - VTE Documentation of Mechanical Device: Graduated compression elastic hosiery Consult Discharge Plan - Plan Referrals: Fabian Perez MD [Partnered Physician] - 02/11/18 3:40 pm (Please follow up as schedule...) NONE,PCP [Primary Care Provider] -
[2018-01-11 11:52] VITALS: BP 132/67
[2018-01-11] MEDS ORDERED: Apixaban 5 MG TABLET PO SCH (21:00)
== END 2018-01-11 12:56 | DRG 683 ==
LOC: 2ANU → SUATTDRO 01-06 01:33
PROVIDERS: ADMIT Internal Medicine; ATTEND Family Medicine